=== PATIENT | female | born 1950 ===

== ENCOUNTER 2018-07-28 05:31 | Inpatient (IN) | payer OTHER ==
[2018-07-28] MEDS ORDERED: LR 1,000 ML IV ONE (06:22)
[2018-07-28] MEDS ORDERED: GADOBUTROL 10 ML VIAL IVP ONE (06:45)
[2018-07-28] MEDS ORDERED: BACITRACIN ZINC 0.5 OZ OINTTUBE TP ONE (07:33)
[2018-07-28] MEDS ORDERED: LIDO/EPI 2%** Not for Epidural 20 ML MDV ONE (07:33)
[2018-07-28] MEDS ORDERED: THROMBIN (BOVINE) 5,000 UNIT VIAL TP ONE (07:34)
[2018-07-28] MEDS ORDERED: EPINEPHrine 30 MG/30 ML MDV (0.1 MG/0.1 ML) ONE (07:34)
[2018-07-28] MEDS ORDERED: METHYLENE BLUE 0.5% 50 MG/10 ML AMP ONE (07:34)
[2018-07-28] MEDS ORDERED: ceFAZolin 2 GM/DEXTROSE 100 ML IV ONE (07:39)
[2018-07-28] MEDS ORDERED: ACETAMINOPHEN 500 MG TAB PO ONE (07:39)
--- NOTE | 2018-07-28 08:59 | PDHPUP ---
History & Physical Update H&P update statement: This history and physical update is based on an assessment of the patient which was completed after admission or registration (within 24 hours), but prior to the surgery/procedure. H&P update: H&P reviewed & patient examined, no change in patient's condition since H&P completed
--- NOTE | 2018-07-28 09:44 | PDANEPAE ---
ANE History of Present Illness pituitary tumor here for transsphenoidal resection ANE Past Medical History - Cardiovascular History Hx Hypertension: Yes Hx Arrhythmias: No Hx Chest Pain: No Hx Coronary Artery / Peripheral Vascular Disease: No Hx CHF / Valvular Disease: No Hx Palpitations: No Cardiovascular History Comment: DVT's AND SADDLE pe'S - Pulmonary History Hx COPD: No Hx Asthma/Reactive Airway Disease: No Hx Recent Upper Respiratory Infection: No Hx Oxygen in Use at Home: No Hx Sleep Apnea: Yes Sleep Apnea Screening Result - Last Documented: Positive Pulmonary History Comment: JERRY uses CPAP - Neurologic History Hx Cerebrovascular Accident: No Hx Seizures: No Hx Dementia: No - Endocrine History Hx Diabetes: No - Renal History Hx Renal Disorders: No - Liver History Hx Hepatic Disorders: No - Neurological & Psychiatric Hx Hx Neurological and Psychiatric Disorders: No - Cancer History Hx Cancer: No - Congenital Disorder History Hx Congenital Disorders: No - GI History Hx Gastrointestinal Disorders: No - Other Health History Other Health History: DVT's with saddle PE's. 07/13 - Chronic Pain History Chronic Pain: Yes (LOWER BACK) - Surgical History Prior Surgeries: lumpectomy 10/10 ANE Review of Systems Review of Systems: - Exercise capacity METS (RN): 4 METS ANE Patient History - Allergies Allergies/Adverse Reactions: No Known Allergies Allergy (Verified 07/14/18 13:20) - Home Medications Home Medications: Allopurinol [Allopurinol 100 MG (*)] 200 mg PO DAILY 07/14/18 [Last Taken ] Apixaban [Eliquis] 2.5 mg PO BID 07/14/18 [Last Taken 07/25/18] Ascorbic Acid [Vitamin C 500 mg (*)] 500 mg PO DAILY 07/14/18 [Last Taken ] Atenolol [Tenormin 100 mg (*)] 50 mg PO DAILY 07/14/18 [Last Taken 07/28/18] Cyanocobalamin [Vitamin B12 (*)] 1,000 mcg PO DAILY 07/14/18 [Last Taken ] Gabapentin [Neurontin 300 MG (*)] 300 mg PO DAILY 07/14/18 [Last Taken 07/28/18] Gabapentin [Neurontin 300 MG (*)] 600 mg PO HS 07/14/18 [Last Taken 07/27/18] Herbals/Supplements -Info Only 1 each PO DAILY 07/14/18 [Last Taken Unknown] Levothyroxine [Synthroid 75 mcg (*)] 75 mcg PO DAILY06 07/14/18 [Last Taken 09/12] Losartan Potassium [Cozaar 50 mg (*)] 50 mg PO DAILY 07/14/18 [Last Taken Unknown] Multivitamins [Multivitamin (*)] 1 each PO DAILY 07/14/18 [Last Taken 07/21/18 t ] Simvastatin [Zocor] 20 mg PO HS 07/14/18 [Last Taken 07/27/18] Triamterene/Hctz 75/50 [Maxzide 75-50 mg Tab (*)] 1 tab PO DAILY 07/14/18 [Last Taken 07/27/18] amLODIPine BESYLATE [Norvasc 10 mg (*)] 10 mg PO DAILY 07/14/18 [Last Taken 09/12] clonIDINE [Catapres-Tts (*)] 0.2 mg TD MO 07/14/18 [Last Taken 07/27/18] - NPO status NPO Status: no food or drink >8 hours NPO Since - Liquids (Date): 07/27/18 NPO Since - Solids (Date): 07/27/18 - Anes Hx Anes Hx: no prior problems - Smoking Hx Smoking Status: Never smoked - Alcohol Use Alcohol Use: None - Family Anes Hx Family Anes Hx: none Family Hx Anesthesia Complications: none ANE Labs/Vital Signs - Vital Signs Vital Signs: reviewed preoperatively; see RN documention for details Heart Rate: 57 Respiratory Rate: 16 O2 Sat (%): 96 Height: 158.75 cm Weight: 79.379 kg ANE Physical Exam - Airway Neck exam: FROM Mallampati Score: Class 2 Mouth exam: normal dental/mouth exam - Pulmonary Pulmonary: no respiratory distress, clear to auscultation - Cardiovascular Cardiovascular: regular rate and rhythym, no murmur, rub, or gallop - ASA Status ASA Status: III ANE Anesthesia Plan Anesthesia Plan: general endotracheal anesthesia Lines/Monitors: arterial line, additional IV Total IV Anesthesia: Yes
[2018-07-28] MEDS ORDERED: MIDAZOLAM 2 MG/2 ML VIAL IVP ONE (09:45)
[2018-07-28] MEDS ORDERED: PROPOFOL 200 MG/20 ML VIAL ONE (09:51)
[2018-07-28] MEDS ORDERED: PROPOFOL/EMULSION 500 MG/50 ML BOTTLE IV ONE ×2 (09:51→12:31)
[2018-07-28] MEDS ORDERED: REMIFENTANIL HCL 1 MG VIAL ONE ×2 (09:51→12:31)
[2018-07-28] MEDS ORDERED: fentaNYL 100 MCG/2 ML INJ ONE ×2 (09:51→13:49)
[2018-07-28] MEDS ORDERED: ROCURONIUM 100 MG/10 ML VIAL ONE (09:52)
[2018-07-28] MEDS ORDERED: PROMETHAZINE HCL 25 MG/ML INJ IVP PRN ×2 (11:20→13:37)
[2018-07-28] MEDS ORDERED: BISACODYL 10 MG SUPP PR PRN (11:20)
[2018-07-28] MEDS ORDERED: LACTULOSE 20 GM/30 ML UDCUP PO PRN (11:20)
[2018-07-28] MEDS ORDERED: diphenhydrAMINE 25 MG CAP PO PRN (11:20)
[2018-07-28] MEDS ORDERED: ACETAMINOPHEN 325 MG TAB PO PRN (11:20)
[2018-07-28] MEDS ORDERED: MAGNESIUM HYDROXIDE 30 ML UDCUP PO PRN (11:20)
[2018-07-28] MEDS ORDERED: ONDANSETRON 4 MG/2 ML VIAL IVP PRN ×2 (11:20→13:37)
[2018-07-28] MEDS ORDERED: ONDANSETRON DISINTEGRATING 4 MG TAB PO PRN (11:20)
[2018-07-28] MEDS ORDERED: niCARdipine/NACL 200 ML IV PRN (11:20)
[2018-07-28] MEDS ORDERED: POLYETHYLENE GLYCOL 3350 17 GM PKT PO PRN (11:20)
--- NOTE | 2018-07-28 12:18 | PDMN ---
Medical Necessity Medical [place] [facility] [place] [place], Nasal Approach, CPT 30305, 68 yo s/ p craniotomy transsphenoidal approach for pituitary tumor, [facility] only
--- NOTE | 2018-07-28 13:36 | POSTANESTH ---
Post Anesthetic Evaluation Cardiovascular Status: Normal, Stable, Similar to Pre-Op Cond Respiratory Status: Normal, Stable, Similar to Pre-op Cond. Level of Consciousness/Mental Status: Can Participate in Eval, Alert and Oriented Pain Control: Adequate, Prn Tx Ordered Nausea/Vomiting Control: Adequate, Prn Tx Ordered Complications Possibly Related to Anesthesia: None Noted
[2018-07-28] MEDS ORDERED: ACETAMINOPHEN 500 MG TAB PO PRN (13:37)
[2018-07-28] MEDS ORDERED: HYDROmorphONE/DILAUDID 2 MG/ML INJ IVP PRN (13:37)
[2018-07-28] MEDS ORDERED: HYDROCODONE/APAP 5/325 TAB PO PRN (13:37)
[2018-07-28] MEDS ORDERED: NALOXONE HCL 0.4 MG/ML INJ IVP PRN (13:37)
[2018-07-28] MEDS ORDERED: oxyCODONE IR 5 MG TAB PO PRN (13:37)
[2018-07-28] MEDS: fentaNYL 100 MCG/2 ML INJ IVP PRN ×4 (13:54→14:21)
[2018-07-28] MEDS ORDERED: HYDROmorphONE/DILAUDID 2 MG/ML INJ ONE (14:49)
[2018-07-28] MEDS: ALLOPURINOL 100 MG TAB PO SCH (15:37)
--- NOTE | 2018-07-28 15:37 | POSTOPPROG ---
Post Op Note Date of Operation: 07/28/18 Surgeon: Zeke Siegel Per Diem: Estelle- pepe surgeon- ENT Anesthesia: GET(General Endotracheal) Pre-op Diagnosis: Pituitary mass Post-op Diagnosis: same Procedure: Transphenoidal resection of pituitary mass Inf/Abcess present in the surg proc area at time of surgery?: No Depth: Organ Space EBL: Minimal SOAP Progress Note Assessment/Plan: Assessment: Plan: 07/28/18 15:31 S: Patient in PACU. Stable with minimal complaints of pain. O: NAD, VSS PERRL, EOMI CN II-XII grossly intact Vision grossly intact Nose- no drainage noted MCDERMOTT x4 to command and with good strength A: 68 yo female sp transphenoidal resection of pituitary mass P: -Admit to ICU -Close monitoring of Urine Output. If >400 in 2 hours or >250 per hour, RN to order stat serum sodium and urine spec grav and then call PA-C with results. Please wait until you have results of labs prior to calling PA-C -Advance diet as tolerated -No blowing nose or drinking through a straw for 6 weeks -Encourage po intake- keep water by bedside at all times -Continue Carreno until tomorrow 1200-if urine output ok can remove then -May restart Eliquis on POD #5 -DVT prophy: TEDs, SCDs, Lovenox to start POD#2 -Seen by Dr. Siegel in PACU -Call with any questions or concerns. Objective: Vital Signs Temp Pulse Resp BP Pulse Ox 36.4 C 71 20 162/74 H 98 07/28/18 15:27 07/28/18 15:27 07/28/18 15:27 07/28/18 15:27 07/28/18 15:27 07/27/18 07/28/18 07/29/18 05:59 05:59 05:59 Intake Total 1200 Output Total 650 Balance 550
[2018-07-28] MEDS: KETOROLAC 30 MG/1 ML SDV IVP PRN (15:42)
[2018-07-28] MEDS: ATENOLOL 100 MG TAB PO SCH (15:53)
[2018-07-28] MEDS: GABAPENTIN 300 MG CAP PO SCH ×2 (15:55→20:31)
[2018-07-28] MEDS: LOSARTAN POTASSIUM 50 MG TAB PO SCH (15:55)
[2018-07-28] MEDS: NS W/ 20 KCl/L 1,000 ML IV SCH (16:04)
[2018-07-28] MEDS: oxyCODONE IR 5 MG TAB PO PRN ×2 (18:22→20:29)
[2018-07-28] MEDS: FAMOTIDINE 20 MG TAB PO SCH (20:30)
[2018-07-28] MEDS: ATORVASTATIN CALCIUM 10 MG TAB PO SCH (20:30)
[2018-07-28] MEDS: SENNOSIDES/DOCUSATE SODIUM TAB PO SCH (20:31)
[2018-07-28] MEDS ORDERED: HYDROCORTISONE 10 MG TAB PO ONE (21:00)
[2018-07-29] MEDS: NS W/ 20 KCl/L 1,000 ML IV SCH (01:45)
[2018-07-29] MEDS: oxyCODONE IR 5 MG TAB PO PRN ×2 (06:12→18:49)
[2018-07-29] MEDS: LEVOTHYROXINE 75 MCG TAB PO SCH (07:43)
[2018-07-29] MEDS: KETOROLAC 30 MG/1 ML SDV IVP PRN ×2 (08:45→20:41)
[2018-07-29] MEDS: GABAPENTIN 300 MG CAP PO SCH ×2 (08:49→20:41)
[2018-07-29] MEDS: ALLOPURINOL 100 MG TAB PO SCH (08:51)
[2018-07-29] MEDS: SENNOSIDES/DOCUSATE SODIUM TAB PO SCH ×2 (08:51→20:42)
--- NOTE | 2018-07-29 08:51 | SOAPPROG ---
SOAP Progress Note Assessment/Plan: Assessment: 68 yo F POD #1 transphenoidal resection of pituitary tumor Plan: neuro: stable and doing well overall PT/OT nasal packing per Dr Mccabe watch for central DI, urine volumes have been stable so far scd/solomon for dvt prophylaxis patient seen by Dr Siegel this morning please call with neuro changes 07/29/18 08:48 Subjective: mild headache with mild nasal drainage, no N/V. Objective: Vital Signs Temp Pulse Resp BP Pulse Ox 36.7 C 77 13 143/81 H 93 07/29/18 07:00 07/29/18 08:00 07/29/18 08:00 07/29/18 08:00 07/29/18 08:00 Laboratory Results 07/29/18 05:58 07/28/18 07/29/18 07/30/18 05:59 05:59 05:59 Intake Total 3695 Output Total 2080 100 Balance 1615 -100 AAOx4, +FC PERRL, EOMI, no facial droop 5/5 + light touch ICD10 Worksheet Patient Problems: Problems Problem Status Onset Pituitary adenoma Acute - ICD10 Problem Qualifiers (1) Pituitary adenoma
[2018-07-29] MEDS: LOSARTAN POTASSIUM 50 MG TAB PO SCH (08:54)
[2018-07-29] MEDS: FAMOTIDINE 20 MG TAB PO SCH ×2 (08:56→20:42)
[2018-07-29] MEDS: ATENOLOL 50 MG TAB PO SCH (09:46)
[2018-07-29] MEDS: HYDROCORTISONE 10 MG TAB PO SCH ×2 (09:47→20:43)
[2018-07-29] MEDS: ATENOLOL 100 MG TAB PO SCH (14:11)
--- NOTE | 2018-07-29 14:28 | ASMTCMCOM ---
CM Note CM Note Notes: Pt is a 68 yo F who underwent resection of pituitary mass. Pt lives her . Pt was cleared by PT to go home. 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 CM to follow. Plan: TBD Date Signed: 07/29/2018 02:26 PM Electronically Signed By:DAVID Laws
--- NOTE | 2018-07-29 17:05 | SOAPPROG ---
SOAP Progress Note Assessment/Plan: Assessment: POD 1 TSS approach for pituitary macroadenoma removal. Doing well overall. No leak sxs. Has some bloody d/c anteriorly around packing but nothing posteriorly. Will plan to pull packs tomorrow. Reminded to continue CSF leak precautions Plan: 07/29/18 17:03 Subjective: doing well. has some bloody d/c from front. No leak sxs. Objective: afvss ra packs in place B small amt of bloody d/c B. OP clear, no bleeding in post op Vital Signs Temp Pulse Resp BP Pulse Ox 36.4 C 68 19 130/67 H 97 07/29/18 12:28 07/29/18 16:00 07/29/18 15:00 07/29/18 16:00 07/29/18 16:00 Laboratory Results 07/29/18 14:00 07/28/18 07/29/18 07/30/18 05:59 05:59 05:59 Intake Total 3695 Output Total 5697 6672 Balance 1615 -1745 ICD10 Worksheet Patient Problems: Problems Problem Status Onset Pituitary adenoma Acute
--- NOTE | 2018-07-29 19:10 | GOP ---
[f rep st] OPERATIVE REPORT DATE OF OPERATION: 07/28/2018 SURGEON: Zeke Siegel MD NEUROSURGEON: Zeke Siegel MD. ANESTHESIA: General endotracheal. PREOPERATIVE DIAGNOSIS: Benign pituitary tumor. POSTOPERATIVE DIAGNOSIS: Benign pituitary tumor. PROCEDURE PERFORMED: 1. Endoscopic transsphenoidal resection of pituitary tumor. 2. Use of stealth stereotactic navigation for volumetric gross total tumor resection. FINDINGS: Successful pituitary tumor resection. SPECIMENS: pituitary tumor. ESTIMATED BLOOD LOSS: Blood loss was 50 cc. 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 Her hormones have been normal, and she was thought to have a small visual field defect, but ultimately was not found to have abnormality of the visual astorga. Given the size of the mass, however, we had recommended resection. She presents electively today for this procedure. DESCRIPTION OF PROCEDURE: After informed consent was obtained from the patient, the patient was brou ght to the operating room, and was placed in the supine position on the operating table. A formal alpesh e-out was performed, identifying the patient by name, medical record number and date of . Preope rative antibiotics were given. Preoperative hydrocortisone was given, and the endotracheal tube was p laced, and general endotracheal anesthesia was smoothly induced. The nose and face were then prepped. Dr. Mccabe's portion of procedure was 1st and she has dictated her approach under a separate dictat ion. In brief, a nasoseptal rescue flap was elevated on the left side and pushed inferiorly. The sphe noidotomy was then made and wide access to the sphenoid sinus was obtained. After we had stripped the mucosa from the sphenoid sinus, there was a small rent in the sella and using Kerrison punches and c areful dissection, a wide opening in the sella was obtained. Using the navigation, we were able to lo calize the area of the tumor between the cavernous sinuses, and the sella was opened toward the tuber culum sellae superiorly and laterally out to the cavernous sinuses on both sides. The micro Doppler w as used to check to be sure there were no vascular tones in the area, and the dura was then opened in a cruciate fashion. The yellowish tissue of the normal pituitary gland was visualized on the right s damon of the exposure and the whitish soft nature of the pituitary tumor was visualized toward the left . Ring curettes were then used to remove the pituitary tumor in a piecemeal fashion. This was collect ed and sent for permanent pathology. We continued in all directions removing tumor posteriorly and in feriorly 1st and ultimately superiorly. The arachnoid membranes were well visualized and were coming down from the optic chiasm and were pulsatile. We were then able to inspect with the endoscope the ca vity. Did not see any further tumor within the pituitary fossa. All bleeding was then controlled usin g irrigation and Surgicel. The cavity was checked using the navigation to be sure that we had covered the entirety of the tumor. A piece of onlay DuraGen was then placed over the dural opening, which wa s covered with a free mucosal graft which was harvested from the middle turbinate on the right side. This repair was then covered using DuraSeal and some Gelfoam. No CSF leak was visualized throughout t he entire case. Dr. Mccabe then replaced the nasoseptal flap which we did not need to use as there w as no CSF leak and placed splints and packing in both nares. The oropharynx was irrigated out and suc tioned. The patient was then extubated in the operating room where she was transferred to the PACU in stable condition. There were no operative complications. I was scrubbed and present the entire proce dure. All sponge and needle counts were correct at the end of the case. CO-SURGEON: Kylee Mccabe MD. FLUIDS: Per the anesthesia record. URINE OUTPUT: Per the anesthesia record. DRAINS: There were no drains. /[id number]/MODL
[2018-07-29] MEDS: ATORVASTATIN CALCIUM 10 MG TAB PO SCH (20:42)
[2018-07-30] MEDS: LEVOTHYROXINE 75 MCG TAB PO SCH (05:50)
--- NOTE | 2018-07-30 07:53 | SOAPPROG ---
SOAP Progress Note Assessment/Plan: Assessment: 68 yo F POD #2 transphenoidal resection of pituitary tumor Plan: neuro: stable and doing well overall PT/OT nasal packing per Dr Mccabe on steroids watch for central DI, urine volumes have been stable so far scd/solomon for dvt prophylaxis possible dc home later today if ok with Dr Mccabe please call with neuro changes 07/29/18 08:48 07/30/18 07:52 Subjective: minimal headache, no N/V. Objective: Vital Signs Temp Pulse Resp BP Pulse Ox 37.0 C 63 14 130/65 H 96 07/30/18 00:00 07/30/18 04:00 07/30/18 04:00 07/30/18 00:00 07/30/18 04:00 Laboratory Results 07/29/18 14:00 07/29/18 07/30/18 07/31/18 05:59 05:59 05:59 Intake Total 3695 4250 Output Total 2080 3620 700 Balance 1615 630 -700 AAOx4, +FC PERRL, EOMI, no facial droop 5/5 + light touch ICD10 Worksheet Patient Problems: Problems Problem Status Onset Pituitary adenoma Acute - ICD10 Problem Qualifiers (1) Pituitary adenoma
[2018-07-30] MEDS: SENNOSIDES/DOCUSATE SODIUM TAB PO SCH (08:34)
[2018-07-30] MEDS: LOSARTAN POTASSIUM 50 MG TAB PO SCH (08:35)
[2018-07-30] MEDS: FAMOTIDINE 20 MG TAB PO SCH (08:35)
[2018-07-30] MEDS: ATENOLOL 50 MG TAB PO SCH (08:35)
[2018-07-30] MEDS: ALLOPURINOL 100 MG TAB PO SCH (08:35)
[2018-07-30] MEDS: GABAPENTIN 300 MG CAP PO SCH (08:35)
[2018-07-30] MEDS ORDERED: ENOXAPARIN 40 MG/0.4 ML SYR SC SCH (09:00)
[2018-07-30] MEDS ORDERED: HYDROCORTISONE 10 MG TAB PO SCH (09:00)
[2018-07-30 11:39] VITALS: BP 134/72
--- NOTE | 2018-07-30 12:54 | SOAPPROG ---
SOAP Progress Note Assessment/Plan: Assessment: POD 2 TSS approach for pituitary macroadenoma removal. Doing well overall. No leak sxs. Has some bloody d/c anteriorly around packing but nothing posteriorly. Pulled packs without any sig bleeding. Reminded to continue CSF leak precautions, keep BP low. RTC 10-14 days. Plan: 07/29/18 17:03 07/30/18 12:53 Subjective: doing well, wants to go home. no sig bleeding or leak sxs Objective: AFVSS RA packs in place removed. NC patent splint on L side No bleeding Vital Signs Temp Pulse Resp BP Pulse Ox 36.8 C 73 19 134/72 H 93 07/30/18 11:38 07/30/18 11:38 07/30/18 11:38 07/30/18 11:38 07/30/18 11:38 Laboratory Results 07/30/18 08:42 07/29/18 07/30/18 07/31/18 05:59 05:59 05:59 Intake Total 7755 0290 Output Total 3731 6476 345 Balance 2446 298 -009 ICD10 Worksheet Patient Problems: Problems Problem Status Onset Pituitary adenoma Acute
--- NOTE | 2018-08-02 08:27 | GOP ---
[f rep st] OPERATIVE REPORT DATE OF OPERATION: 07/28/2018 SURGEON: Kylee Mccabe MD ANESTHESIA: General. PREOPERATIVE DIAGNOSIS: Pituitary microadenoma. POSTOPERATIVE DIAGNOSIS: Pituitary microadenoma. PROCEDURE PERFORMED: 1. Endonasal endoscopic transphenoidal approach to the pituitary. 2. Bilateral doe bullosa excisions. 3. Stereotactic volumetric navigation of the paranasal sinuses in extraoral skull base utilizing the Sionic Mobile Fusion system. FINDINGS: The patient is found to have normal sinus anatomy. The tumor was removed by Dr. Robbin haque. There was no CSF leak. ESTIMATED BLOOD LOSS: Minimal. INDICATIONS: The patient is a very pleasant woman who has a history of a pituitary micro adenoma vianney t was found and she had some symptoms and on imaging. She was seen by Dr. Siegel and is felt she woul d benefit from the above procedure. He asked me if I would help him with the approach. DESCRIPTION OF PROCEDURE: The patient was first seen in the preoperative area where informed consent was obtained. She was then brought back to the operating room where Anesthesia sedated and intubate d her. Head of the bed was turned 180 degrees. She was prepped and draped in the normal fashion. T he fusion-guided head piece was placed on the forehead and then registered and confirmed to be tracki ng accurately. Once this was done, a universal time-out protocol was performed confirming the patien t and the procedure. I then placed epi-soaked pledgets within the nares bilaterally and after these had sufficient time to act they were removed. At this point, a 0-degree scope was used to visualize the nasal cavity on both sides. She had fairly large doe that were noted preoperatively on imagin g and both of these did seem to inhibit some access secondary to the bulkiness and so at this point, an epinephrine pledget was placed medial to the middle turbinate on the left and then on the right, a nd turbinate scissors were used to make an incision at the crotch of the middle turbinate and then cu t this back to the basal melena and then down truncating the entire middle turbinate and this was rem rafa. It was sent off the field in case of need in the future. The mucosal edges in some small blee ding were cauterized using the endoscopic bipolar cautery. At this point, I was able to visualize th e superior turbinate. The inferior one-third of the superior turbinate was taken down with hand inst ruments and microdebrider and I was able to gently remove some of the posterior ethmoid partition vianney t was overlying the sphenoid face. Once this was done, I was able to see the sphenoid os. It was ge ntly widened using the microdebrider and this was done superiorly and medially. At this point, an ep i pledget was placed at the face of the sphenoid. On the left side, we turned our attention to the c oncha bullosa on this side. In this setting removing the entire middle turbinate was decided until i t was necessary for access. I made a small incision with a sickle knife in the midportion of the con charity and then hand instruments and the grater were used to take down the lateral partition of the conc dunlap, thereby giving us more space. After this was done, the middle turbinate was then lateralized wit h a Mills until I was able to see the superior turbinate. At this point, the inferior one-third of t he superior turbinate was taken down and then the posterior ethmoid partitions were removed until I c january to the natural os of the sphenoid. This was gently widened superiorly and medially. Once this w as done, we had previously planned to do a nasoseptal rescue flap in case we needed this and so about 5 cc of 1% lidocaine with 1:100,000 epinephrine was injected into the septum on the left as well as inferior to the face of the sphenoid where the pedicle would be. Once this had sufficient time to ac t, a Flathead-tipped Bovie on a long shaft was used to make an incision superiorly just to the superi or aspect of the natural os coming along the septum anteriorly until the anterior edge of the middle turbinate. I then made a down cutting incision just about a centimeter above the floor. Once this w as done, a caudal was used to elevate this flap down off the face of the sphenoid and off the septum until it was below the area where we would need the access and then it was kept here for safe keeping . Once this was done, I then had a complete access to the sphenoid on this left side. Up and down-b iting Kerrison's were used to take down the face of the sphenoid superiorly, the skull base laterally and then inferiorly to the floor of the sinus. I then used hand instruments and the microdebrider t o perform a posterior septectomy and then I widened the sphenoid on the right side until we had wide access of both sphenoids. She did have a dominant right sphenoid but the tumor seemed to go off to t he left a little bit. She had multiple inter sinus septa. These were taken down using a straight tr ue cutting instrument until it was flush with the back wall. We were able to see the optica carotid recesses bilaterally. The mucosa was removed overlying the patella and at this point, we had good ac cess. Dr. Siegel came in and I turned the procedure over to him and I went to the other side of the ed. I used the left side of the nose to advance my scope and adhesed the right side to access the tu mor. Throughout the whole procedure I was there holding the scope and giving him visualization. He removed the tumor. There was no CSF leak. Once that was done, he placed a small underlay graft with DuraGen. We then took the middle turbinate that had previously been removed from the right and camilla felipe the mucosa and a free mucosal graft was placed over this DuraGen making sure to keep the mucosal side external and then some DuraSeal was placed over this. Once this was done, some Gel-Foam soaked in thrombin was placed in the sinus. At this point I took back over the procedure. I replaced the n asoseptal flap and the glottic splint had been cut to size was placed on the left side and sutured to the septum. I then placed Merocel that had been cut to size and placed in a gloved finger on either side to hold everything in place. Her oropharynx and pharynx were suctioned out using an OG suction and once she was clean and dry and there was no active bleeding, all instruments were removed. She was turned back over to the Anesthesia where she was awoken and extubated, taken to PACU in stable co ndition. There were no complications. She tolerated the procedure well and all instrument and pledg et counts were correct at the end of the procedure. CO-SURGEON: Zeke Siegel MD. COMPLICATIONS: None. /[id number]/MODL
== END 2018-07-30 15:56 | disposition home or self-care (01) | DRG 615 ==
LOC: F3N 05:31 → MERGE 08:30 → F2N 15:08
PROVIDERS: ADMIT Neurological Surgery; ATTEND Neurological Surgery
PROC: 8E09XBZ Computer Assisted Procedure of Head and Neck Region (ICD-10-PCS; principal; 2018-07-28 09:00)
PROC: 0GB04ZZ Excision of Pituitary Gland, Percutaneous Endoscopic Approach (ICD-10-PCS; principal; 2018-07-28 09:00)
DX: D35.2 Benign neoplasm of pituitary gland (principal); I10 Essential (primary) hypertension; G47.33 Obstructive sleep apnea (adult) (pediatric); Z86.718 Personal history of other venous thrombosis and embolism; Z86.711 Personal history of pulmonary embolism
CPT/HCPCS: 92523-GN; 97161-GP; 97165-GO; A9585; J0171; J0690; J1170; J1650; J1885; J2250; J2270; J2704; J3010; Q9968